=== PATIENT | male | born 1930 | race Caucasian/White ===

== ENCOUNTER 2019-04-23 22:37 | Inpatient (IN) | payer MEDICARE, OTHER ==
[2019-04-23] MEDS ORDERED: Ondansetron PF 4 MG/2 ML Vial IVP PRN (23:02)
[2019-04-23] MEDS ORDERED: Acetaminophen 325 MG TAB PO PRN (23:02)
[2019-04-23] MEDS ORDERED: Ondansetron ODT 4 MG TAB SL PRN (23:02)
[2019-04-23 23:10] VITALS: BMI 29.8
[2019-04-24 05:18] LABS: Troponin I 0.032 ng/mL (< 0.028)
[2019-04-24 08:48] LABS: #Eosinphils 0.2 thou/uL (0.0-0.7); #Lymphocytes 0.7 thou/uL (1.20-3.40); #Monocytes 0.7 thou/uL (0.11-0.59); %Basophils 0.3 % (0.0-1.0); %Eosinophils 3.1 % (0.0-10.0); %Lymphocytes 8.7 % (21.0-51.0); %Monocytes 9.1 % (0.0-10.0); %Neutrophils 78.8 % (42.0-75.0); Hemoglobin 11.8 g/dL (14.0-18.0); Mean Corpuscular HGB CONC 33.4 g/dL (32.0-36.0); Mean Corpuscular Hemoglobin 31.8 pg (27.0-31.0); Mean Corpuscular Volume 95.3 fL (78.0-98.0); Mean Platelet Volume 6.3 fL (7.4-10.4); Platelet Count 230 thou/uL (130-400); RBC Distribution Width 12.6 % (11.5-14.5); White Blood Cell (WBC) Count 7.7 thou/uL (4.8-10.8)
[2019-04-24 09:11] LABS: ALT (SGPT) 13 U/L (8-55); AST (SGOT) 13 U/L (5-34); Alkaline Phosphatase 48 U/L (40-110); Anion Gap 13 mmol/L (10-20); BUN (Urea Nitrogen) 15 mg/dL (8.4-25.7); Bilirubin, Total 0.8 mg/dL (0.2-1.2); Calc. Creatinine Clearance 70 mL/min (70-130); Calcium 8.7 mg/dL (7.8-10.44); Carbon Dioxide 31 mmol/L (23-31); Chloride 91 mmol/L (98-107); Estimated GFR-MDRD 82; Globulin 2.2 g/dL (2.4-3.5); Glucose 181 mg/dL (83-110); Potassium 4.5 mmol/L (3.5-5.1); Protein, Total 6.2 g/dL (5.8-8.1); Sodium 130 mmol/L (136-145)
[2019-04-24] MEDS ORDERED: Carvedilol 25 MG TAB PO SCH ×3 (09:25→21:00)
[2019-04-24] MEDS ORDERED: Furosemide 40 MG/4 ML VIAL SLOW IVP SCH (09:45)
--- NOTE | 2019-04-24 09:50 | PDOC.HHP ---
Hospitalist HPI - History of Present Illness SOB History of Present Illness: Mr. Barfield is an 88 y/o gentleman with PMH of CAD s/p CABG 2009, aortic stenosis , CHF, atrial fibrilattion with pacemaker, t2dm who presents to [facility] with increased swelling in legs for the past week. He states that since January he started noticing increasing swelling and weight gain. He went from 177lbs to now 186lbs. This past week noticed that he had increasing shortness of breath when walking. States that it got so bad that he went to ED in [place]. He apparently has history of recent LHC which demonstrates EF of 55%. He had echo in Mar 2019 which demonstrated EF of 45 to 55% as well as aortic valve stenosis. He was given lasix dose in [place] ED and transfered to our instituation for cardiac and pulmonary evaluation. BNP on admission 397. Hospitalist ROS - Review of Systems Constitutional: denies: fever, chills, sweats, weakness, malaise, other Eyes: denies: pain, vision change, conjunctivae inflammation, eyelid inflammation, redness, other ENT: denies: ear pain, ear discharge, nose pain, nose discharge, nose congestion , mouth pain, mouth swelling, throat pain, throat swelling, other Respiratory: reports: shortness of breath, SOB with excertion. denies: cough, dry, hemoptysis, pleuritic pain, sputum, wheezing, other Cardiovascular: reports: edema. denies: chest pain, palpitations, orthopnea, paroxysmal noc. dyspnea, light headedness, other Gastrointestinal: denies: nausea, vomiting, abdominal pain, diarrhea, constipation, melena, hematochezia, other Genitourinary: denies: dysuria, frequency, incontinence, hematuria, retention, other Musculoskeletal: denies: neck pain, shoulder pain, arm pain, back pain, hand pain, leg pain, foot pain, other Skin: denies: rash, lesions, willam, bruising, other Neurological: denies: weakness, numbness, incoordination, change in speech, confusion, seizures, other - Medication Medications: Medication Instructions Recorded Confirmed Type Aspirin [Aspirin EC] 162 mg PO QPM 09/22/13 04/23/19 History Diltiazem HCl [Cardizem CD] 240 mg PO DAILY 09/22/13 04/23/19 History Hydrochlorothiazide 12.5 mg PO QAM 09/22/13 04/23/19 History Levothyroxine Sodium [Synthroid] 50 mcg PO DAILY 09/22/13 04/23/19 History Simvastatin 10 mg PO HS 09/22/13 04/23/19 History clonazePAM 0.5 mg PO PRN PRN 09/22/13 04/23/19 History Carvedilol [Coreg] 25 mg PO BID 09/23/13 04/23/19 History Dulaglutide [Trulicity] 0.5 ml SC [id number] 04/23/19 04/23/19 History Olmesartan Medoxomil [Benicar] 1 tab PO DAILY 04/23/19 04/23/19 History glyBURIDE/metFORMIN HCl 2 tab PO QAM-WM 04/23/19 04/23/19 History [Glyburide-Metformin 5-500 mg] Hospitalist History - Past Medical History Cardiac: reports: AFIB, CAD, CHF, HTN Pulmonary: reports: congestive heart failure CLINICAL NURSE MANAGER: reports: no pertinent history Gastrointestinal: reports: no pertinent history Heme/Onc: reports: no pertinent history Hepatobiliary: reports: no pertinent history Psych: reports: no pertinent history Musculoskeletal: reports: no pertinent history Rheumatologic: reports: no pertinent history Infectious Disease: reports: no pertinent history ENT: reports: no pertinent history Renal/: reports: no pertinent history Endocrine: reports: Diabetes Dermatology: reports: no pertinent history - Past Surgical History Past Surgical History: reports: CABG - Family History Family History: reports: hypertension - Social History Smoking Status: Former smoker Alcohol: reports: Rare Drugs: reports: none Living Situation: With Family Activity level: independent ambulation - Exam General Appearance: NAD, awake alert Eye: PERRL, anicteric sclera ENT: normocephalic atraumatic, no oropharyngeal lesions, moist mucosa Neck: supple, symmetric, no JVD, no thyromegaly, no lymphadenopathy, no carotid bruit Heart: RRR, no gallops, no rubs, normal peripheral pulses, murmur present Respiratory: no wheezes, normal chest expansion, no tachypnea, normal percussion Respiratory - other findings: b/l crackles in lower lobes Gastrointestinal: soft, non-tender, non-distended, normal bowel sounds, no palpable masses, no hepatomegaly, no splenomegaly, no bruit Extremities: no cyanosis, no clubbing, 2+ LE edema Skin: normal turgor, no lesions, no rashes Neurological: cranial nerve grossly intact, normal sensation to touch, no weakness, no focal deficits, no new deficit Musculoskeletal: normal tone, normal strength, no muscle wasting Psychiatric: normal affect, normal behavior, A&O x 3 Hospitalist Results - Labs Result Diagrams: 04/24/19 08:33 04/24/19 08:33 Lab results: WBC 7.7 thou/uL (4.8-10.8) 04/24/19 08:33 Hgb 11.8 g/dL (14.0-18.0) L 04/24/19 08:33 Hct 35.2 % (42.0-52.0) L 04/24/19 08:33 MCV 95.3 fL (78.0-98.0) 04/24/19 08:33 Plt Count 230 thou/uL (130-400) 04/24/19 08:33 Neutrophils % 78.8 % (42.0-75.0) H 04/24/19 08:33 Sodium 130 mmol/L (136-145) L 04/24/19 08:33 Potassium 4.5 mmol/L (3.5-5.1) 04/24/19 08:33 Chloride 91 mmol/L (98-107) L 04/24/19 08:33 Carbon Dioxide 31 mmol/L (23-31) 04/24/19 08:33 BUN 15 mg/dL (8.4-25.7) 04/24/19 08:33 Creatinine 0.88 mg/dL (0.7-1.3) 04/24/19 08:33 Glucose 181 mg/dL (83-110) H 04/24/19 08:33 Calcium 8.7 mg/dL (7.8-10.44) 04/24/19 08:33 Total Bilirubin 0.8 mg/dL (0.2-1.2) 04/24/19 08:33 AST 13 U/L (5-34) 04/24/19 08:33 ALT 13 U/L (8-55) 04/24/19 08:33 Alkaline Phosphatase 48 U/L (40-110) 04/24/19 08:33 Troponin I 0.030 ng/mL (< 0.028) H 04/24/19 07:37 B-Natriuretic Peptide 868.4 pg/mL (0-100) H 04/24/19 08:33 Serum Total Protein 6.2 g/dL (5.8-8.1) 04/24/19 08:33 Albumin 4.0 g/dL (3.4-4.8) 04/24/19 08:33 Additional comment: Vital Signs (24 hours) Temp Pulse Pulse Pulse Resp BP BP 04/24/19 16:13 97.5 F L 62 18 04/24/19 14:14 61 73 129/59 L 120/75 04/24/19 12:15 97.2 F L 68 20 04/24/19 07:42 98.4 F 69 20 04/24/19 04:28 98.4 F 61 18 04/23/19 23:53 04/23/19 23:08 98.0 F 76 16 BP Pulse Ox 04/24/19 16:13 154/70 H 96 04/24/19 14:14 04/24/19 12:15 136/65 93 L 04/24/19 07:42 162/70 H 94 L 04/24/19 04:28 159/70 H 95 04/23/19 23:53 96 04/23/19 23:08 164/70 H 96 Hospitalist H&P A/P - Problem (1) Acute on chronic diastolic (congestive) heart failure Code(s): I50.33 - ACUTE ON CHRONIC DIASTOLIC (CONGESTIVE) HEART FAILURE Status : Acute (2) Moderate aortic valve stenosis Code(s): I35.0 - NONRHEUMATIC AORTIC (VALVE) STENOSIS Status: Acute (3) Paroxysmal atrial fibrillation Code(s): I48.0 - PAROXYSMAL ATRIAL FIBRILLATION Status: Acute (4) CAD (coronary artery disease) of artery bypass graft Code(s): I25.810 - ATHEROSCLEROSIS OF CABG W/O ANGINA PECTORIS Status: Acute (5) T2DM (type 2 diabetes mellitus) Status: Acute (6) HLD (hyperlipidemia) Code(s): E78.5 - HYPERLIPIDEMIA, UNSPECIFIED Status: Acute (7) HTN (hypertension) Code(s): I10 - ESSENTIAL (PRIMARY) HYPERTENSION Status: Acute (8) Pulmonary HTN Code(s): I27.20 - PULMONARY HYPERTENSION, UNSPECIFIED Status: Acute (9) Hyponatremia Code(s): E87.1 - HYPO-OSMOLALITY AND HYPONATREMIA Status: Acute - Plan Plan: Admit to telemetry for further diuresis. Appreciate cardiology and pulmonology recommendations Continue Lasix IV 40mg BID. Daily weight. Continue to monitor I&Os Fluid resctiction of 1800ml, hold HCTZ from home for now No need for repeat echo, as recent echo in Mar 2019 Continue medication from home including carvedilol, levothyroxine, ASA, and Zocor PT/OT eval and tx Code status: Full code ACP: is surrogate decision maker Disposition: Admit for eval and tx of diastolic HF. Workup of dyspnea with pulm and cards. Reccs appreciated. Likely greater than 2 midnights required in eval and tx.
[2019-04-24] MEDS ORDERED: Dextrose 5% in Water 1,000 ML IV PRN (09:51)
[2019-04-24] MEDS ORDERED: Dextrose 50% Abboject 50 ML SYRINGE SLOW IVP PRN (09:51)
[2019-04-24] MEDS ORDERED: Enoxaparin Sodium 40 MG/0.4 ML SYRINGE SC SCH (10:15)
--- NOTE | 2019-04-24 15:25 | CON ---
DATE OF CONSULTATION: PRIMARY CARE DOCTOR: Jose Garcia MD PRIMARY ELEVATOR CONSTRUCTOR HYDRAULIC: Spring Gutierrez MD PRIMARY BUTTERMAKER HELPER: Either Dr. Coffey or Dr. Swani. REASON FOR CARDIOLOGY CONSULT: New onset congestive heart failure. HISTORY OF PRESENT ILLNESS: Mr. Barfield is a very pleasant 88-year-old male with significant history of coronary artery disease with status post stent placement and CABG x1 in 2009, paroxysmal atrial fibrillation with history of ablation in 2012, hyperlipidemia, hypertension, possible COPD. The patient started having shortness of breath since last summer. The patient underwent cardiac catheterization in April 14, [address] Gutierrez, which showing EF 55%, KALPESH 1.3 cm and showing pulmonary hypertension. He started to have more shortness of breath with mild exacerbation with weakness, dizziness, lightheadedness since . He does not have a good appetite since . However, in the last few days he could not even walk more than 10 feet without worsening of dyspnea on exertion. He also reports that he has had abdominal bloating and bilateral lower extremities for couple of months. He had to sleep in the recliner due to the shortness of breath. He has a pulse oximetry. His normal oxygen level is around 98%; however, last few days, his O2 saturation has been 87% to 88%. He uses incentive spirometry. He used to record up to 1750 mL, however, now he can go up to 750. He denied chest pain, heaviness, tightness, left arm weakness, or any other cardiac complaints. He underwent left and right cardiac catheterization due to severe aortic valve stenosis. The patient KALPESH was 1.3 cm and showing the elevated pulmonary hypertension. The patient had a history of CABG x1 to the BUTTS to LAD in July 2009. The patient had a history of paroxysmal atrial fibrillation with stress test and PVAI in October 2012 and the patient had a stress test done in September 2018 with no ischemia. The patient's echocardiogram was done in March 2019 with EF 45% to 50%, moderate LAD, , moderate mitral valve and tricuspid regurgitation, severe aortic valve regurgitation with KALPESH which is showing 1.3 via cath in April 17 and moderate pulmonary hypertension and elevated RVSP. The patient had a stent placement in RCA. PAST MEDICAL HISTORY: Paroxysmal atrial fibrillation, coronary artery disease with stent placement and CABG, right bundle branch block and pacemaker placement, diabetes type 2, hyperlipidemia, hypertension, and possible COPD. The patient is supposed to follow up with Dr. Coffey today as a first consultation. The patient is supposed to be seen by Dr. Swain today as a consult. SURGICAL HISTORY: Bilateral cataract surgery, colonoscopy. Dual-chamber pacemaker in May 2012, PVAI ablation for atrial fibrillation in October 2012, CABG x1 in July 2009 and stent placement in RCA prior to the CABG. FAMILY HISTORY: The patient's mother had a pacemaker. Patient's father . The patient had a history of stent placement and valvular heart disease. The patient's brother due to alcohol and then tobacco induced cardiomyopathy. SOCIAL HISTORY: He is . He has four children who are living well. He is ex-smoker who quit in 1981. He drinks half finger of bourbon with Coke one glass a day. He used to exercise, walking in a mall; however, after [place] he has not done. He drinks 2 cups of coffee in the morning and he drinks at least six or eight glasses of water through the day. He does not watch sodium intake. ALLERGIES: NO KNOWN DRUG ALLERGIES. MEDICATION: 1. The patient has hypothyroid, levothyroxine 50 mcg once a day. 2. Metformin/glyburide 500/5 mg 2 tablets in the morning, one tablet at night. 3. Aspirin 81 mg once a day. 4. Clonazepam 0.5 mg half tablet every day. 5. Trulicity subcu. 6. Carvedilol 25 mg twice a day. 7. Hydrochlorothiazide 12.5 mg once a day. 8. Benicar 40 mg once a day. 9. Simvastatin 10 mg once a day. 10. Diltiazem 240 once a day. 11. DuoNeb. REVIEW OF SYSTEMS: 12-point review of systems negative unless otherwise mentioned in the HPI. PHYSICAL EXAMINATION: VITAL SIGNS: Blood pressure 162/70, temperature 98.4, pulse is 69, AV pacing, respiratory rate 20, and O2 saturation 94% with 2 L nasal cannula. GENERAL: The Patient is alert and oriented x4, not in acute distress. HEENT: Normocephalic, atraumatic. Eyes, extraocular muscle movement intact. ENT, mouth oral mucosa moist without lesion. NECK: Supple. Normal range of motion. No JVD. HEENT: Head, normocephalic and atraumatic. RESPIRATORY: Clear to auscultate, but very diminished at bilateral lower . No wheezing, rales, or rhonchi noted. CARDIOVASCULAR: Regular rate and rhythm. Normal S1, S2. There are no S3 or S4. No significant hives or thrill noted. The patient has a murmur in the right aortic valve area. EXTREMITIES: 2+ pulses in bilateral upper and lower extremities. The patient has 2 pitting edema in the left lower extremity, then 2 to 3 pitting edema in the right lower extremities. Carotid pulses are present without bruit or thrill. ABDOMEN: Soft, nontender. No mass to palpitate. Bowel sounds are present but diminished, hypoactive. MUSCULOSKELETAL: The patient able to move all extremities. The patient denied claudication. SKIN: Warm and dry. No lesion, rash, or erythema noted. NEUROLOGIC: The patient is alert, oriented x4, nonfocal. PSYCHIATRIC: The patient mood is appropriate. LABORATORY DATA: WBC 7.7, hemoglobin 11.8, hematocrit 35.2, platelets 230. Sodium 130, potassium 4.5, BUN of 15, creatinine 0.88, glucose 181, AST 13, ALT 13. Troponin is 0.032 and 0.030. Albumin is 4.0. The patient has a chest x-ray, which shows bilateral pleural effusion, the patient had congestive heart failure and a BNP at ER at [facility] showed 397 and blood gas is normal. ASSESSMENT AND PLAN: 1. Possible new onset acute on chronic diastolic heart failure. The patient's echocardiogram in March 2019 showed EF 45% to 50% and the patient underwent cardiac catheterization in April 17, 2019 with EF 55%. We would like to resume Lasix 40 mg twice a day for now and would like to resume the patient's beta tiffany and if the patient's vital signs stable, we would like to start STAS inhibitor or ARB for this patient, we would like to hold the hydrochlorothiazide since the patient's sodium level is low at this moment. 2. Moderate aortic valve stenosis. The patient's cardiac catheterization April 2019, shows moderate aortic valve stenosis with KALPESH 1.3 cm. We would like to continue to monitor. At this moment, patient is not a candidate for any further surgery or procedure for this site. 3. Paroxysmal atrial fibrillation. The patient's heart rate is stable at this moment with current medication. We would like to resume the carvedilol 12.5 mg twice a day instead of 25 mg twice a day since the patient is going to receive Lasix. 4. Coronary artery disease with a history of stent placement and coronary artery bypass graft. The patient's condition is stable at this moment. He is going to be on carvedilol and aspirin and simvastatin. 5. Diabetes type 2, which is managed by primary care doctor. 6. Hyperlipidemia. He is on simvastatin. 7. Hypertension, patient's blood pressure is stable at this moment. We would like to resume the patient's home medication. 8. Pulmonary hypertension, which is managed by Dr. Prasad or Dr. Simon, comparative sociology professor. Thank you very much for Cardiology Service to participate in the care of this patient. We will follow along the patient's care team and make further recommendations as appropriate. Job ID: [id number]
--- NOTE | 2019-04-24 16:00 | PRG ---
DATE OF SERVICE: 04/24/2019 I performed PFTs on this patient at the bedside today. His FEV1 is 0.80 L, which is 38% predicted. Forced vital capacity 1.33 L, which is 43% predicted. His FEV1/FVC ratio is 0.6. This is consistent with mixed obstructive/restrictive pulmonary impairment. Undoubtedly, this patient has some COPD, probably also has concurrent restriction from congestive heart failure. Job ID: [id number]
[2019-04-24] MEDS: Carvedilol 25 MG TAB PO SCH (16:16)
[2019-04-24] MEDS ORDERED: Carvedilol 6.25 MG TAB PO SCH (17:00)
--- NOTE | 2019-04-24 17:27 | CON ---
DATE OF CONSULTATION: 04/24/2019 CONSULTING PHYSICIAN: Dr. Gutierrez. REASON FOR CONSULTATION: Shortness of breath. HISTORY OF PRESENT ILLNESS: An 88-year-old male who has been plagued by episodic shortness of breath for at least the last year. Symptoms have been worse for the last 2 months. I do not have full information in the chart. From what I can gather, he is currently being worked up for aortic stenosis and had a cardiac catheterization done at the outpatient facility sometime last week. I do not know the results of that, but he was told his valve did not need to be replaced yet. He has also had atrial fibrillation in the past. He complains that he retains fluid. He says shortness of breath can occur either at rest or with exertion. He has no wheezing or congestion. He has taken some nebulizer treatments in the past. He says these helped for about 2 hours before the effect wears off. He smoked a pack and half a day between ages 21 and 51 and quit back in the early 1980s. 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 PAST MEDICAL HISTORY: Otherwise remarkable for type 2 diabetes, hypertension, hyperlipidemia, LV dysfunction with EF of 45% to 50% according to a note back in 2013. ALLERGIES: NONE. MEDICATIONS: Prior to admission: 1. Benicar. 2. Hydrochlorothiazide. 3. Coreg. 4. Glyburide/metformin. 5. Trulicity. 6. Cardizem CD. 7. Aspirin. 8. Clonazepam. 9. Simvastatin. 10. Levothyroxine. PHYSICAL EXAMINATION: VITAL SIGNS: Temperature 97.2, pulse 68, respirations 20, O2 saturation 93% on 2 L, and blood pressure 136/65. GENERAL: He is awake, alert, and in no distress. HEENT: Unremarkable. NECK: No adenopathy or JVD. LUNGS: Diminished breath sounds, but no wheezing or rhonchi. CARDIAC: S1, S2 regular. 2/6 systolic murmur. ABDOMEN: Soft. EXTREMITIES: No edema. IMAGING: Chest x-ray shows hyperinflation. LABORATORY DATA: White blood cell count 7.7, hematocrit 35.2, and platelet count 230. Sodium 130, potassium 4.5, chloride 91, CO2 of 31, BUN 15, creatinine 0.8, glucose 181. BNP is 868. ASSESSMENT: Dyspnea. Differential includes cardiac from congestive heart failure or aortic stenosis. This is somewhat supported by his elevated BNP. He also has significant smoking history in the past, so I will do some spirometry and see whether or not he has some degree of chronic obstructive pulmonary disease. Unfortunately, I cannot do the complete lung volumes or DLCO at this time due to personal limitations. PLAN: Plan for PFTs. Further disposition to follow. Job ID: [id number]
[2019-04-24] MEDS: Mometasone/Formoterol 120 PUFF INHALER INH SCH (18:32)
[2019-04-24] MEDS: Furosemide 40 MG/4 ML VIAL SLOW IVP SCH (20:24)
[2019-04-24] MEDS: clonazePAM 0.5 MG TAB PO PRN (20:24)
[2019-04-24] MEDS: Aspirin 81 mg Enteric Coated Tablet PO SCH (20:24)
[2019-04-24] MEDS: Simvastatin 5 MG TAB PO SCH (20:24)
[2019-04-24] MEDS ORDERED: Non-Formulary Item 1 EACH (Simvastatin [Simvastatin] 10 MG) PO SCH (21:00)
[2019-04-25 04:52] LABS: #Eosinphils 0.4 thou/uL (0.0-0.7); #Monocytes 0.8 thou/uL (0.11-0.59); #Neutrophils 5.3 thou/uL (1.40-6.50); %Basophils 0.3 % (0.0-1.0); %Eosinophils 4.7 % (0.0-10.0); %Lymphocytes 13.8 % (21.0-51.0); %Monocytes 11.1 % (0.0-10.0); %Neutrophils 70.2 % (42.0-75.0); Hemoglobin 11.4 g/dL (14.0-18.0); Mean Corpuscular HGB CONC 32.4 g/dL (32.0-36.0); Mean Corpuscular Hemoglobin 30.7 pg (27.0-31.0); Mean Corpuscular Volume 94.9 fL (78.0-98.0); Mean Platelet Volume 6.5 fL (7.4-10.4); Platelet Count 228 thou/uL (130-400); RBC Distribution Width 12.5 % (11.5-14.5); Red Blood Cell (RBC) Count 3.72 mill/uL (4.70-6.10); White Blood Cell (WBC) Count 7.5 thou/uL (4.8-10.8)
[2019-04-25 05:12] LABS: Anion Gap 10 mmol/L (10-20); BUN (Urea Nitrogen) 15 mg/dL (8.4-25.7); Calc. Creatinine Clearance 71 mL/min (70-130); Calcium 8.5 mg/dL (7.8-10.44); Carbon Dioxide 35 mmol/L (23-31); Chloride 88 mmol/L (98-107); Estimated GFR-MDRD 86; Glucose 72 mg/dL (83-110); Potassium 4.1 mmol/L (3.5-5.1); Sodium 129 mmol/L (136-145)
[2019-04-25] MEDS: Furosemide 40 MG/4 ML VIAL SLOW IVP SCH ×2 (07:39→14:53)
[2019-04-25] MEDS ORDERED: Levothyroxine Sodium 50 MCG TAB PO SCH (09:00)
[2019-04-25] MEDS: Enoxaparin Sodium 40 MG/0.4 ML SYRINGE SC SCH (09:13)
[2019-04-25] MEDS: Carvedilol 25 MG TAB PO SCH ×2 (09:15→17:33)
[2019-04-25] MEDS: Mometasone/Formoterol 120 PUFF INHALER INH SCH ×2 (09:17→19:17)
--- NOTE | 2019-04-25 11:39 | PDOC.CPN ---
- Subjective Date: 04/25/19 Time: 09:30 Interval history: Overall patient feeling much better. Still volume overloaded, but improved. - Review of Systems General: denies: fever/chills, weight/appetite/sleep changes, night sweats, fatigue Respiratory: reports: shortness of breath Cardiovascular: denies: chest pain, palpitation, edema, paroxysmal nocturnal dyspnea, orthopnea Gastrointestinal: denies: nausea, vomiting, diarrhea, constipation, abd pain, GI bleeding Musculoskeletal: denies: pain, tenderness, stiffness, swelling, arthritis/ arthralgias Neurological: denies: numbness, syncope, seizure, weakness - Objective Allergies/Adverse Reactions: Allergies Allergy/AdvReac Type Severity Reaction Status Date / Time No Known Allergies Allergy Unverified 09/22/13 11:50 Visit Medications: Current Medications Albuterol/Ipratropium (Duoneb) 3 ml NEB [id number] [facility] Last Admin: 04/25/19 09:05 Dose: 3 ml Aspirin (Ecotrin) 162 mg PO QPM [facility] Last Admin: 04/24/19 20:24 Dose: 162 mg Carvedilol (Coreg) 25 mg PO BID-WM [facility] Last Admin: 04/25/19 09:15 Dose: 25 mg Clonazepam (Klonopin) 0.5 mg PO PRN PRN PRN Reason: Anxiety/Insomnia Last Admin: 04/24/19 20:24 Dose: 0.5 mg Dextrose/Water (Dextrose 50%) 25 gm SLOW IVP PRN PRN PRN Reason: Hypoglycemia Diltiazem HCl (Cardizem Cd) 240 mg PO DAILY [facility] Last Admin: 04/25/19 09:14 Dose: 240 mg Enoxaparin Sodium (Lovenox) 40 mg SC 0900 [facility] Last Admin: 04/25/19 09:13 Dose: 40 mg Furosemide (Lasix) 40 mg SLOW IVP 0600,1400 [facility] Glucagon (Glucagon) 1 mg IM PRN PRN PRN Reason: Hypoglycemia Dextrose/Water (D5w) 1,000 mls @ 0 mls/hr IV .Q0M PRN PRN Reason: Hypoglycemia Insulin Human Lispro (Humalog) 0 units SC .MILD SLIDING SCALE PRN PRN Reason: Mild Correctional Scale Levothyroxine Sodium (Synthroid) 50 mcg PO 0600 [facility] Mometasone Furoate/Formoterol Fumar (Dulera 200 Mcg/5 Mcg Inhaler) 2 puff INH BID-RT [facility] Last Admin: 04/25/19 09:17 Dose: 2 puff Simvastatin (Zocor) 10 mg PO HS [facility] Last Admin: 04/24/19 20:24 Dose: 10 mg Sodium Chloride (Flush - Normal Saline) 10 ml IVF Q12HR [place] Last Admin: 04/25/19 07:40 Dose: 10 ml Sodium Chloride (Flush - Normal Saline) 10 ml IVF PRN PRN PRN Reason: Saline Flush Last Admin: 04/24/19 10:18 Dose: 10 ml Vital Signs & Weight: Vital Signs Temp Pulse Resp BP BP Pulse Ox 04/25/19 09:17 64 16 04/25/19 09:14 64 154/11 H 04/25/19 09:07 93 L 04/25/19 09:05 64 16 04/25/19 07:56 92 L 04/25/19 07:54 98.8 F 59 L 18 154/111 H 92 L 04/25/19 03:56 97.7 F 63 16 153/89 H 96 Weight 179 lb 3 oz - Physical Exam General: alert & oriented x3, appears well HEENT: mucus membranes moist Neck: supple neck Cardiac: regular rate and rhythm Lungs: decreased breath sounds Neuro: grossly intact Abdomen: non-tender, distended Extremities: 2+ LE edema Skin: clear Musculoskeletal: no pain - Labs Result Diagrams: 04/25/19 04:39 04/25/19 04:39 Troponin/CKMB Troponin I 0.030 ng/mL (< 0.028) H 04/24/19 07:37 - Telemetry Sinus rhythms and dysrhythmias: other (AV paced) - Assessment/Plan Assessment/Plan: 1. Severe 2. COPD 3. Acute on chronic diastolic CHF 4. s/p pacer Continue diuresis. Patient is improving. Continue walking. No changes. Plan for possible TAVR in the future per Dr. Gutierrez.
[2019-04-25] MEDS: HumaLOG 300 UNITS/3 ML VIAL SC PRN (12:05)
--- NOTE | 2019-04-25 16:57 | PRG ---
DATE OF SERVICE: 04/25/2019 SUBJECTIVE: The patient is in better spirits today. He says diuretics, he felt his breathing significantly. He was almost a liter negative yesterday. OBJECTIVE: VITAL SIGNS: His temperature is 98.0, pulse is 60, respirations are 12, saturations 95% on room air, and blood pressure is 142/64. HEENT: Unremarkable. NECK: No adenopathy or JVD. CHEST: Clear anteriorly. CARDIAC: S1 and S2. Regular. ABDOMEN: Soft. EXTREMITIES: No edema. ASSESSMENT: 1. Chronic obstructive pulmonary disease. 2. Severe aortic stenosis. 3. Acute on chronic diastolic heart failure. PLAN: Continue nebs for his COPD. I think most of his improvement is due to diuresis and I would anticipate this making his pulmonary function much better. Job ID: [id number]
--- NOTE | 2019-04-25 18:12 | PDOC.HOSPP ---
- Subjective Encounter Date: 04/25/19 Encounter Time: :20 Subjective: Pt seen for followup re:CHF exacerbation. Feels better today. - Objective Vital Signs & Weight: Vital Signs (12 hours) Temp Pulse Resp BP BP BP Pulse Ox 04/25/19 16:00 98 F 60 12 142/64 H 95 04/25/19 14:05 63 16 04/25/19 12:00 98.2 F 67 16 130/60 91 L 04/25/19 09:17 64 16 04/25/19 09:14 64 154/11 H 04/25/19 09:07 93 L 04/25/19 09:05 64 16 04/25/19 07:56 92 L 04/25/19 07:54 98.8 F 59 L 18 154/111 H 92 L Weight Weight 179 lb 3 oz I&O: 04/24/19 04/25/19 04/26/19 06:59 06:59 06:59 Intake Total 300 1490 1440 Output Total 1400 2350 1900 Balance -1100 -860 -460 Result Diagrams: 04/25/19 04:39 04/25/19 04:39 Additional Labs: Accuchecks 04/25/19 04/25/19 04/25/19 16:51 11:02 04:25 POC Glucose 122 H 176 H 71 04/24/19 20:16 POC Glucose 219 H Labs and MARs reviewed by me EKG Reviewed by me: Yes (Tele: AV-paced) Hospitalist ROS - Review of Systems Constitutional: denies: fever, chills, sweats, weakness, malaise Respiratory: reports: SOB with excertion. denies: cough, dry, shortness of breath, hemoptysis, pleuritic pain, sputum, wheezing Cardiovascular: denies: chest pain, palpitations, orthopnea, paroxysmal noc. dyspnea, edema, light headedness Gastrointestinal: denies: nausea, vomiting, abdominal pain, diarrhea, constipation, melena, hematochezia Genitourinary: denies: dysuria, frequency, incontinence, hematuria, retention Musculoskeletal: denies: neck pain, shoulder pain, arm pain, back pain, hand pain, leg pain, foot pain - Medication Medications: Active Medications Generic Name Dose Route Start Last Admin Trade Name Freq PRN Reason Stop Dose Admin Albuterol/Ipratropium 3 ml 04/24/19:00 04/25/19 14:05 Duoneb NEB 3 ml [id number] [facility] Administration Aspirin 162 mg 04/24/19 21:00 04/24/19 20:24 Ecotrin PO 162 mg QPM [facility] Administration Carvedilol 25 mg 04/24/19 17:00 04/25/19 17:33 Coreg PO 25 mg BID-WM [facility] Administration Clonazepam 0.5 mg 04/24/19 09:19 04/24/19 20:24 Klonopin PO 0.5 mg PRN PRN Administration Anxiety/Insomnia Diltiazem HCl 240 mg 04/25/19 09:00 04/25/19 09:14 Cardizem Cd PO 240 mg DAILY [facility] Administration Enoxaparin Sodium 40 mg 04/25/19 09:00 04/25/19 09:13 Lovenox SC 40 mg 0900 [facility] Administration Furosemide 40 mg 04/25/19 14:00 04/25/19 14:53 Lasix SLOW IVP 40 mg 0600,1400 [facility] Administration Insulin Human Lispro 0 units 04/24/19 09:51 04/25/19 12:05 Humalog SC 2 unit .MILD SLIDING SCALE PRN Administration Mild Correctional Scale Mometasone Furoate/Formoterol Fumar 2 puff 04/24/19 18:30 04/25/19 09:17 Dulera 200 Mcg/5 Mcg Inhaler INH 2 puff BID-RT [facility] Administration Simvastatin 10 mg 04/24/19 21:00 04/24/19 20:24 Zocor PO 10 mg HS [facility] Administration Sodium Chloride 10 ml 04/24/19 21:00 04/25/19 07:40 Flush - Normal Saline IVF 10 ml Q12HR [facility] Administration Sodium Chloride 10 ml 04/24/19 09:33 04/24/19 10:18 Flush - Normal Saline IVF 10 ml PRN PRN Administration Saline Flush - Exam General Appearance: awake alert Eye: anicteric sclera ENT: moist mucosa Neck: supple, symmetric, no thyromegaly, JVD Heart: RRR, no gallops, no rubs, normal peripheral pulses Respiratory - other findings: Bibasal crackles Gastrointestinal: soft, non-tender, non-distended, normal bowel sounds Extremities: 1+ LE edema Psychiatric: normal affect, normal behavior, A&O x 3 Hosp A/P - Plan - Assessment: (1) Acute on chronic diastolic (congestive) heart failure NYHA Class 3 Code(s): I50.33 - ACUTE ON CHRONIC DIASTOLIC (CONGESTIVE) HEART FAILURE Status : Acute (2) Hyponatremia Code(s): E87.1 - HYPO-OSMOLALITY AND HYPONATREMIA Status: Acute (3) Paroxysmal atrial fibrillation Code(s): I48.0 - PAROXYSMAL ATRIAL FIBRILLATION Status: Chronic (4) CAD (coronary artery disease) of artery bypass graft Code(s): I25.810 - ATHEROSCLEROSIS OF CABG W/O ANGINA PECTORIS Status: Chronic (5) T2DM (type 2 diabetes mellitus) Status: Acute (6) HLD (hyperlipidemia) Code(s): E78.5 - HYPERLIPIDEMIA, UNSPECIFIED Status: Chronic (7) HTN (hypertension) Code(s): I10 - ESSENTIAL (PRIMARY) HYPERTENSION Status: Chronic (8) Pulmonary HTN Code(s): I27.20 - PULMONARY HYPERTENSION, UNSPECIFIED Status: Chronic (9) Moderate aortic valve stenosis Code(s): I35.0 - NONRHEUMATIC AORTIC (VALVE) STENOSIS Status: Chronic - Plan Plan: Diuresing well, Continue Lasix IV 40mg BID. Daily weight. Continue to monitor I&Os HCTZ on hold due to hyponatremia No need for repeat echo, as recent echo in Mar 2019 Continue carvedilol, levothyroxine, ASA, and Zocor Ambulate pt
[2019-04-25] MEDS: Aspirin 81 mg Enteric Coated Tablet PO SCH (20:43)
[2019-04-25] MEDS: Simvastatin 5 MG TAB PO SCH (20:43)
[2019-04-25] MEDS: clonazePAM 0.5 MG TAB PO PRN (20:45)
[2019-04-26] MEDS: Levothyroxine Sodium 50 MCG TAB PO SCH (05:59)
[2019-04-26] MEDS: Furosemide 40 MG/4 ML VIAL SLOW IVP SCH ×2 (05:59→14:35)
[2019-04-26] MEDS: Mometasone/Formoterol 120 PUFF INHALER INH SCH ×2 (08:54→19:09)
[2019-04-26 09:25] LABS: Anion Gap 13 mmol/L (10-20); BUN (Urea Nitrogen) 16 mg/dL (8.4-25.7); Calc. Creatinine Clearance 57 mL/min (70-130); Calcium 8.6 mg/dL (7.8-10.44); Carbon Dioxide 35 mmol/L (23-31); Chloride 87 mmol/L (98-107); Estimated GFR-MDRD 68; Glucose 202 mg/dL (83-110); Potassium 3.7 mmol/L (3.5-5.1); Sodium 131 mmol/L (136-145)
--- NOTE | 2019-04-26 09:35 | PDOC.CPN ---
- Subjective Date: 04/26/19 Time: 09:00 Interval history: Overall patient much improved. Walking cortes without difficulty. - Review of Systems General: denies: fever/chills, weight/appetite/sleep changes, night sweats, fatigue Respiratory: reports: shortness of breath Cardiovascular: denies: chest pain, palpitation, edema, paroxysmal nocturnal dyspnea, orthopnea Gastrointestinal: denies: nausea, vomiting, diarrhea, constipation, abd pain, GI bleeding Musculoskeletal: denies: pain, tenderness, stiffness, swelling, arthritis/ arthralgias Neurological: denies: numbness, syncope, seizure, weakness - Objective Allergies/Adverse Reactions: Allergies Allergy/AdvReac Type Severity Reaction Status Date / Time No Known Allergies Allergy Unverified 09/22/13 11:50 Visit Medications: Current Medications Albuterol/Ipratropium (Duoneb) 3 ml NEB [id number] [facility] Last Admin: 04/26/19 08:38 Dose: 3 ml Aspirin (Ecotrin) 162 mg PO QPM [facility] Last Admin: 04/25/19 20:43 Dose: 162 mg Carvedilol (Coreg) 25 mg PO BID-[facility] Last Admin: 04/25/19 17:33 Dose: 25 mg Clonazepam (Klonopin) 0.5 mg PO PRN PRN PRN Reason: Anxiety/Insomnia Last Admin: 04/25/19 20:45 Dose: 0.5 mg Dextrose/Water (Dextrose 50%) 25 gm SLOW IVP PRN PRN PRN Reason: Hypoglycemia Diltiazem HCl (Cardizem Cd) 240 mg PO DAILY [facility] Last Admin: 04/25/19 09:14 Dose: 240 mg Enoxaparin Sodium (Lovenox) 40 mg SC 0900 [facility] Last Admin: 04/25/19 09:13 Dose: 40 mg Furosemide (Lasix) 40 mg SLOW IVP 0600,1400 [facility] Stop: 04/26/19 23:59 Last Admin: 04/26/19 05:59 Dose: 40 mg Furosemide (Lasix) 40 mg PO DAILY-[facility] Glucagon (Glucagon) 1 mg IM PRN PRN PRN Reason: Hypoglycemia Dextrose/Water (D5w) 1,000 mls @ 0 mls/hr IV .Q0M PRN PRN Reason: Hypoglycemia Insulin Human Lispro (Humalog) 0 units SC .MILD SLIDING SCALE PRN PRN Reason: Mild Correctional Scale Last Admin: 04/25/19 12:05 Dose: 2 unit Levothyroxine Sodium (Synthroid) 50 mcg PO 0600 [facility] Last Admin: 04/26/19 05:59 Dose: 50 mcg Mometasone Furoate/Formoterol Fumar (Dulera 200 Mcg/5 Mcg Inhaler) 2 puff INH BID-RT [facility] Last Admin: 04/26/19 08:54 Dose: 2 puff Simvastatin (Zocor) 10 mg PO HS [facility] Last Admin: 04/25/19 20:43 Dose: 10 mg Sodium Chloride (Flush - Normal Saline) 10 ml IVF Q12HR [facility] Last Admin: 04/25/19 20:46 Dose: 10 ml Sodium Chloride (Flush - Normal Saline) 10 ml IVF PRN PRN PRN Reason: Saline Flush Last Admin: 04/24/19 10:18 Dose: 10 ml Vital Signs & Weight: Vital Signs Temp Pulse Resp BP Pulse Ox 04/26/19 08:54 70 16 04/26/19 08:40 97 04/26/19 08:38 70 16 04/26/19 04:50 97.7 F 82 12 140/63 95 Weight 175 lb 6 oz - Physical Exam General: alert & oriented x3, appears well Neck: supple neck Cardiac: regular rate and rhythm Lungs: clear to auscultation, decreased breath sounds Neuro: grossly intact Abdomen: soft, other (mild distention) Extremities: other: (mild edema) Skin: clear Musculoskeletal: no pain - Labs Result Diagrams: 04/25/19 04:39 04/26/19 08:57 Troponin/CKMB Troponin I 0.030 ng/mL (< 0.028) H 04/24/19 07:37 - Assessment/Plan Assessment/Plan: 1. Severe 2. COPD 3. Acute on chronic diastolic CHF 4. s/p pacer 5. Hyponatremia Will change lasix to po starting tomorrow. Check BMP for sodium level. Patient much better. Continue walking. No changes. Plan for possible TAVR in the future per Dr. Gutierrez. ? Discharge soon.
[2019-04-26] MEDS: Carvedilol 25 MG TAB PO SCH ×2 (09:38→17:10)
[2019-04-26] MEDS: Enoxaparin Sodium 40 MG/0.4 ML SYRINGE SC SCH (09:38)
--- NOTE | 2019-04-26 15:37 | PDOC.HOSPP ---
- Subjective Encounter Date: 04/26/19 Encounter Time: 08:20 Subjective: Pt seen for followup re: CHF exacerbation. Feels better. - Objective Vital Signs & Weight: Vital Signs (12 hours) Temp Pulse Resp BP BP BP Pulse Ox 04/26/19 13:32 61 16 04/26/19 11:42 97.2 F L 80 24 H 108/59 L 95 04/26/19 11:41 97.2 F L 80 24 H 04/26/19 09:37 82 118/66 04/26/19 08:54 70 16 04/26/19 08:40 97 04/26/19 08:38 70 16 04/26/19 08:00 97.7 F 82 18 118/66 97 04/26/19 04:50 97.7 F 82 12 140/63 95 Weight Weight 175 lb 6 oz I&O: 04/25/19 04/26/19 04/27/19 06:59 06:59 06:59 Intake Total 1490 1670 230 Output Total 2350 2675 425 Balance -860 -1005 -195 Result Diagrams: 04/25/19 04:39 04/26/19 08:57 Additional Labs: Accuchecks 04/26/19 04/26/19 04/25/19 11:03 05:45 20:30 POC Glucose 173 H 76 263 H 04/25/19 16:51 POC Glucose 122 H Labs and MARs reviewed by me EKG Reviewed by me: Yes (Tele: AV-paced) Hospitalist ROS - Review of Systems Respiratory: reports: SOB with excertion. denies: cough, shortness of breath, pleuritic pain, wheezing Cardiovascular: denies: chest pain, palpitations, orthopnea, paroxysmal noc. dyspnea, edema, light headedness - Medication Medications: Active Medications Generic Name Dose Route Start Last Admin Trade Name Freq PRN Reason Stop Dose Admin Albuterol/Ipratropium 3 ml 04/24/19 19:00 04/26/19 13:32 Duoneb NEB 3 ml [id number] [facility] Administration Aspirin 162 mg 04/24/19 21:00 04/25/19 20:43 Ecotrin PO 162 mg QPM [place] Administration Carvedilol 25 mg 04/24/19 17:00 04/26/19 09:38 Coreg PO 25 mg BID-WM [place] Administration Clonazepam 0.5 mg 04/24/19 09:19 04/25/19 20:45 Klonopin PO 0.5 mg PRN PRN Administration Anxiety/Insomnia Diltiazem HCl 240 mg 04/25/19 09:00 04/26/19 09:37 Cardizem Cd PO 240 mg DAILY [facility] Administration Enoxaparin Sodium 40 mg 04/25/19 09:00 04/26/19 09:38 Lovenox SC 40 mg 0900 [place] Administration Furosemide 40 mg 04/25/19 14:00 04/26/19 14:35 Lasix SLOW IVP 04/26/19 23:59 40 mg 0600,1400 [place] Administration Insulin Human Lispro 0 units 04/24/19 09:51 04/25/19 12:05 Humalog SC 2 unit .MILD SLIDING SCALE PRN Administration Mild Correctional Scale Levothyroxine Sodium 50 mcg 04/26/19 06:00 04/26/19 05:59 Synthroid PO 50 mcg 0600 [place] Administration Mometasone Furoate/Formoterol Fumar 2 puff 04/24/19 18:30 04/26/19 08:54 Dulera 200 Mcg/5 Mcg Inhaler INH 2 puff BID-RT [place] Administration Simvastatin 10 mg 04/24/19 21:00 04/25/19 20:43 Zocor PO 10 mg HS [place] Administration Sodium Chloride 10 ml 04/24/19 21:00 04/26/19 09:38 Flush - Normal Saline IVF 10 ml Q12HR [facility] Administration Sodium Chloride 10 ml 04/24/19 09:33 04/26/19 14:36 Flush - Normal Saline IVF 10 ml PRN PRN Administration Saline Flush - Exam General Appearance: NAD Eye: anicteric sclera ENT: moist mucosa Neck: supple Heart: RRR Respiratory: CTAB Gastrointestinal: soft, non-tender Extremities: 1+ LE edema Psychiatric: normal affect, normal behavior Hosp A/P - Plan - Assessment: (1) Acute on chronic diastolic (congestive) heart failure NYHA Class 3 Code(s): I50.33 - ACUTE ON CHRONIC DIASTOLIC (CONGESTIVE) HEART FAILURE Status : Acute (2) Hyponatremia Code(s): E87.1 - HYPO-OSMOLALITY AND HYPONATREMIA Status: Acute (3) Paroxysmal atrial fibrillation Code(s): I48.0 - PAROXYSMAL ATRIAL FIBRILLATION Status: Chronic (4) CAD (coronary artery disease) of artery bypass graft Code(s): I25.810 - ATHEROSCLEROSIS OF CABG W/O ANGINA PECTORIS Status: Chronic (5) T2DM (type 2 diabetes mellitus) Status: Acute (6) HLD (hyperlipidemia) Code(s): E78.5 - HYPERLIPIDEMIA, UNSPECIFIED Status: Chronic (7) HTN (hypertension) Code(s): I10 - ESSENTIAL (PRIMARY) HYPERTENSION Status: Chronic (8) Pulmonary HTN Code(s): I27.20 - PULMONARY HYPERTENSION, UNSPECIFIED Status: Chronic (9) Moderate aortic valve stenosis Code(s): I35.0 - NONRHEUMATIC AORTIC (VALVE) STENOSIS Status: Chronic - Plan Plan: Clinically improving. Continue Lasix IV 40mg BID. Continue to monitor I&Os HCTZ on hold, sodium improved to 131. Continue carvedilol, levothyroxine, ASA, and Zocor Ambulate pt Family updated at bedside.
[2019-04-26] MEDS: clonazePAM 0.5 MG TAB PO PRN (20:47)
[2019-04-26] MEDS: Aspirin 81 mg Enteric Coated Tablet PO SCH (20:47)
[2019-04-26] MEDS: Simvastatin 5 MG TAB PO SCH (20:47)
[2019-04-27 04:40] LABS: #Eosinphils 0.3 thou/uL (0.0-0.7); #Lymphocytes 1.1 thou/uL (1.20-3.40); #Monocytes 0.7 thou/uL (0.11-0.59); #Neutrophils 3.6 thou/uL (1.40-6.50); %Basophils 0.8 % (0.0-1.0); %Eosinophils 4.9 % (0.0-10.0); %Lymphocytes 19.6 % (21.0-51.0); %Monocytes 12.4 % (0.0-10.0); %Neutrophils 62.4 % (42.0-75.0); Hemoglobin 10.7 g/dL (14.0-18.0); Mean Corpuscular HGB CONC 31.8 g/dL (32.0-36.0); Mean Corpuscular Hemoglobin 30.3 pg (27.0-31.0); Mean Platelet Volume 6.4 fL (7.4-10.4); Platelet Count 216 thou/uL (130-400); RBC Distribution Width 12.6 % (11.5-14.5); Red Blood Cell (RBC) Count 3.52 mill/uL (4.70-6.10); White Blood Cell (WBC) Count 5.7 thou/uL (4.8-10.8)
[2019-04-27 05:07] LABS: Anion Gap 11 mmol/L (10-20); BUN (Urea Nitrogen) 22 mg/dL (8.4-25.7); Calc. Creatinine Clearance 48 mL/min (70-130); Calcium 8.4 mg/dL (7.8-10.44); Carbon Dioxide 36 mmol/L (23-31); Chloride 89 mmol/L (98-107); Estimated GFR-MDRD 58; Glucose 73 mg/dL (83-110); Potassium 3.5 mmol/L (3.5-5.1); Sodium 132 mmol/L (136-145)
[2019-04-27] MEDS: Levothyroxine Sodium 50 MCG TAB PO SCH (05:23)
[2019-04-27] MEDS: Mometasone/Formoterol 120 PUFF INHALER INH SCH (07:11)
[2019-04-27] MEDS ORDERED: Furosemide 40 MG TAB PO SCH (07:30)
[2019-04-27] MEDS: Carvedilol 25 MG TAB PO SCH ×2 (08:35→16:21)
[2019-04-27] MEDS: Enoxaparin Sodium 40 MG/0.4 ML SYRINGE SC SCH (08:37)
[2019-04-27] MEDS ORDERED: TRULICITY SC SCH (09:00)
--- NOTE | 2019-04-27 10:20 | PRG ---
DATE OF SERVICE: 04/27/2019 SUBJECTIVE: He continues to improve. He says he feels better than he has felt in several months. OBJECTIVE: VITAL SIGNS: His temperature is 98.5, pulse 67, blood pressure 151/67, and O2 saturation 95%. HEENT: Unremarkable. NECK: No adenopathy or JVD. CHEST: Clear. CARDIAC: S1 and S2. Regular. ABDOMEN: Soft. EXTREMITIES: No edema. ASSESSMENT: 1. Chronic heart failure due to valvular heart disease. 2. Improved respiratory status after diuresis. 3. Underlying chronic obstructive pulmonary disease. I doubt that the lung status improvement is due to anything but the diuretics. Job ID: [id number]
--- NOTE | 2019-04-27 11:19 | PDOC.CPN ---
- Subjective Date: 04/27/19 Time: 11:20 Interval history: The pt seen and examined. No overnight events. No cardiac complaints. - Objective Allergies/Adverse Reactions: Allergies Allergy/AdvReac Type Severity Reaction Status Date / Time No Known Allergies Allergy Unverified 09/22/13 11:50 Visit Medications: Current Medications Albuterol/Ipratropium (Duoneb) 3 ml NEB [id number] [facility] Last Admin: 04/27/19 07:11 Dose: 3 ml Aspirin (Ecotrin) 162 mg PO QPM [facility] Last Admin: 04/26/19 20:47 Dose: 162 mg Carvedilol (Coreg) 25 mg PO BID-WM [facility] Last Admin: 04/27/19 08:35 Dose: 25 mg Clonazepam (Klonopin) 0.5 mg PO PRN PRN PRN Reason: Anxiety/Insomnia Last Admin: 04/26/19 20:47 Dose: 0.5 mg Dextrose/Water (Dextrose 50%) 25 gm SLOW IVP PRN PRN PRN Reason: Hypoglycemia Diltiazem HCl (Cardizem Cd) 240 mg PO DAILY [facility] Last Admin: 04/27/19 08:35 Dose: 240 mg Enoxaparin Sodium (Lovenox) 40 mg SC 0900 [facility] Last Admin: 04/27/19 08:37 Dose: 40 mg Furosemide (Lasix) 40 mg PO DAILY-AC [facility] Last Admin: 04/27/19 08:35 Dose: 40 mg Glucagon (Glucagon) 1 mg IM PRN PRN PRN Reason: Hypoglycemia Dextrose/Water (D5w) 1,000 mls @ 0 mls/hr IV .Q0M PRN PRN Reason: Hypoglycemia Insulin Human Lispro (Humalog) 0 units SC .MILD SLIDING SCALE PRN PRN Reason: Mild Correctional Scale Last Admin: 04/25/19 12:05 Dose: 2 unit Levothyroxine Sodium (Synthroid) 50 mcg PO 0600 [facility] Last Admin: 04/27/19 05:23 Dose: 50 mcg Mometasone Furoate/Formoterol Fumar (Dulera 200 Mcg/5 Mcg Inhaler) 2 puff INH BID-RT [facility] Last Admin: 04/27/19 07:11 Dose: 2 puff Trulicity ( (Dulaglutide)) 0 each SC Q7DAYS [facility] Simvastatin (Zocor) 10 mg PO HS [facility] Last Admin: 04/26/19 20:47 Dose: 10 mg Sodium Chloride (Flush - Normal Saline) 10 ml IVF Q12HR [facility] Last Admin: 04/27/19 08:37 Dose: 10 ml Sodium Chloride (Flush - Normal Saline) 10 ml IVF PRN PRN PRN Reason: Saline Flush Last Admin: 04/26/19 14:36 Dose: 10 ml Vital Signs & Weight: Vital Signs Temp Pulse Resp BP BP BP Pulse Ox 04/27/19 11:12 98.4 F 73 16 118/57 L 93 L 04/27/19 08:35 67 151/67 H 04/27/19 07:52 98.5 F 66 16 143/65 H 95 04/27/19 07:11 80 12 04/27/19 04:13 97.6 F 80 20 135/60 93 L Weight 170 lb 7 oz - Physical Exam General: alert & oriented x3 HEENT: mucus membranes moist Neck: supple neck Cardiac: regular rate and rhythm, S1/S2 Lungs: clear to auscultation Neuro: cranial nerve 2-12 intact Extremities: no edema Skin: clear Musculoskeletal: normal range of motion - Labs Result Diagrams: 04/27/19 03:59 04/27/19 03:59 Troponin/CKMB Troponin I 0.030 ng/mL (< 0.028) H 04/24/19 07:37 - Telemetry Sinus rhythms and dysrhythmias: other (V paced) - Assessment/Plan Assessment/Plan: 1. Acute on chronic diastolic CHF - stable with RA; on Lasix and Coreg; will start STAS/ARB with more stable VS 2. Mod-Severe with KALPESH 1.3 cm2 2. COPD 3. CAD with hx of stent and CABG x 1 - stable; on BBlocker, ASA, and Statin 4. s/p pacer 5. Hyponatremia 6. Prox Afib - well controlled HR MAR reviewed Pt. seen and eval. by me. I agree with the A/P by the FIELD MARKETING SPECIALIST.He is feeling much better after diuresis. Chest clear. RRR. From a cardiac standpoint he is stable for d/c. I have sent his info. to [place] for evaluation of a TAVR. Continue po diuretics. f/u with me in 2-3 weeks. Decrease polasix to once a day.
[2019-04-27] MEDS: HumaLOG 300 UNITS/3 ML VIAL SC PRN (11:48)
[2019-04-27] MEDS ORDERED: Acetaminophen/Codeine 30-300mg Tablet PO PRN ×2 (16:35)
[2019-04-27] MEDS ORDERED: diphenhydrAMINE 50 MG/ML VIAL IVP PRN (16:35)
[2019-04-27] MEDS ORDERED: Lidocaine 5% Patch TD SCH ×2 (16:45→17:00)
[2019-04-27 17:58] VITALS: BP 106/57; TEMP 98.2
[2019-04-27] MEDS ORDERED: Gabapentin 100 MG CAP PO SCH (21:00)
--- NOTE | 2019-04-28 01:35 | DIS ---
DATE OF ADMISSION: 04/23/2019 DATE OF DISCHARGE: 04/27/2019 PRIMARY CARE PROVIDER: Jose Garcia MD DISCHARGE DIAGNOSES: 1. Acute on chronic diastolic congestive heart failure, NYHA class III, moderate to severe aortic stenosis. 2. Chronic obstructive pulmonary disease. 3. Hyponatremia. CONDITION OF PATIENT ON THE DAY OF DISCHARGE: Stable. I assessed Mr. Barfield on the day of discharge. He denies any chest pain or shortness of breath. Vital signs are stable. S1 and S2 are heard, regular. Lungs are clear to auscultation bilaterally. CONSULTATIONS DURING THIS HOSPITALIZATION: 1. Cardiology, Dr. Spring Gutierrez MD. 2. Pulmonary and Critical Care Medicine, Dr. Swain. DISCHARGE MEDICATIONS: 1. Trulicity 0.5 mL subcutaneously every week. 2. Aspirin 162 mg daily. 3. Coreg 25 mg 2 times a day. 4. Cardizem CD 240 mg daily. 5. Glyburide/metformin two tablets in the morning and one tablet in the evening, 5/500 mg tablet strength. 6. Synthroid 50 mcg daily. 7. Benicar 40 mg daily. 8. Simvastatin 10 mg at bedtime. 9. Clonazepam 0.5 mg as needed. New medications starting during this hospitalization are: 1. Lasix 40 mg daily. 2. Dulera 200/5 mcg two puffs 2 times a day. 3. Potassium chloride 10 mEq daily. 4. DuoNeb 3 mL four times a day as needed. Hydrochlorothiazide was discontinued during this hospitalization. HOSPITAL COURSE: Mr. Barfield is a pleasant 88-year-old gentleman, who was admitted to [facility] on April 24, 2019, for acute on chronic diastolic congestive heart failure. He was seen by Cardiology Service. He was also seen by Pulmonary and Critical Care Medicine Service. He improved with intravenous diuretics. He had bedside pulmonary function tests, which were consistent with mixed obstructive/restrictive pulmonary impairment. He was hyponatremic, therefore, hydrochlorothiazide was discontinued. He continued to improve clinically and is being discharged home in a stable condition. He was continued on aspirin since he was in sinus rhythm during this hospitalization, per cardiology service. On the day of discharge, Mr. Barfield has sodium of 132, potassium 3.5, creatinine 1.19, white count 5700, hemoglobin 10.7, and platelet count 216,000. Many thanks for allowing me to participate in your patient's care. Please feel free to contact me with any questions or concerns. DISCHARGE DESTINATION: Home. TIME SPENT: Total amount of time spent coordinating this discharge: 32 minutes. DIET: Heart healthy and diabetic. ACTIVITY: As tolerated. POST-ACUTE CARE FOLLOWUP: With primary care provider in 3 days; with Cardiology , Dr. Gutierrez on May 01, 2019 at 10:00 a.m.; and with Dr. Bebeto Swain in 2 to 3 weeks. Job ID: [id number] MTDD
[2019-04-28] MEDS ORDERED: Lidocaine Patch Removal 1 EACH TOP SCH (05:00)
== END 2019-04-27 18:45 | disposition home or self-care (01) | DRG 292 ==
LOC: 2NO 22:37
PROVIDERS: ADMIT Family Medicine; ATTEND Family Medicine
DX: I11.0 Hypertensive heart disease with heart failure (principal); E87.1 Hypo-osmolality and hyponatremia; I25.10 Atherosclerotic heart disease of native coronary artery without angina pectoris; I50.33 Acute on chronic diastolic (congestive) heart failure; Z95.1 Presence of aortocoronary bypass graft; Z95.0 Presence of cardiac pacemaker; E11.9 Type 2 diabetes mellitus without complications; I35.0 Nonrheumatic aortic (valve) stenosis; Z79.82 Long term (current) use of aspirin; Z87.891 Personal history of nicotine dependence; I48.0 Paroxysmal atrial fibrillation; I27.20 Pulmonary hypertension, unspecified
CPT/HCPCS: 36415; 36416; 80048; 80053; 83880; 84484; 85025; 93798; 94010; 94640; J1650; J1940; J7620

== ENCOUNTER 2021-05-11 12:47 | Outpatient (CLI) | payer MEDICARE, OTHER | END 2021-05-11 12:48 | disposition home or self-care (01) | LOC: BICCT 12:47 | PROVIDERS: ATTEND Thoracic Surgery (Cardiothoracic Vascular Surgery) | DX: I65.29 Occlusion and stenosis of unspecified carotid artery (principal); I70.8 Atherosclerosis of other arteries | CPT/HCPCS: 70498; 82565 ==

== ENCOUNTER 2021-05-17 09:30 | Inpatient (IN) | payer MEDICARE, OTHER ==
[2021-05-18] MEDS ORDERED: Phenylephrine 10 MG/ML VIAL ONE (07:18)
[2021-05-18] MEDS ORDERED: Fentanyl 250 MCG/5 ML VIAL ONE (10:41)
[2021-05-18] MEDS ORDERED: Bupivacaine PF 0.5% 30 ML VIAL ONE (10:45)
[2021-05-18] MEDS ORDERED: Protamine Sulfate 50 MG/5 ML VIAL ONE (10:45)
[2021-05-18] MEDS ORDERED: Dexamethasone 4 mg/ml Vial ONE (10:45)
[2021-05-18] MEDS ORDERED: EPINEPHrine 1 MG/ML AMP ONE (10:45)
[2021-05-18] MEDS ORDERED: Heparin 5,000 UNITS/ML VIAL ONE (10:45)
[2021-05-18] MEDS ORDERED: Lidocaine 2% PF 5 ML VIAL ONE (11:06)
[2021-05-18] MEDS ORDERED: ceFAZolin Sodium (SDC) 2 GM/100 ML BAG ONE (11:52)
[2021-05-18] MEDS ORDERED: Ondansetron PF 4 MG/2 ML Vial ONE (12:00)
[2021-05-18] MEDS ORDERED: Dexamethasone 20 MG/5 ML VIAL ONE (12:00)
[2021-05-18] MEDS ORDERED: Glycopyrrolate 0.2 MG/ML 5 ML SYRINGE ONE (12:00)
[2021-05-18] MEDS ORDERED: Rocuronium Bromide 10 MG/ML (10ML VIAL) ONE (12:00)
[2021-05-18] MEDS ORDERED: PROPOFOL 200 MG/20 ML VIAL ONE (12:00)
[2021-05-18] MEDS ORDERED: Lidocaine 1% PF 5 ML VIAL ONE (12:00)
[2021-05-18] MEDS ORDERED: hydrALAZINE 20 MG/ML VIAL SLOW IVP PRN (13:28)
[2021-05-18] MEDS ORDERED: Phenylephrine 40 MG in Sodium Chloride 0.9% 250 ML 250 ML IVPB PRN (13:28)
[2021-05-18] MEDS ORDERED: Fentanyl 100 MCG/2 ML VIAL SLOW IVP PRN (13:28)
[2021-05-18] MEDS ORDERED: Ondansetron PF 4 MG/2 ML Vial IVP PRN (13:28)
[2021-05-18] MEDS ORDERED: traMADol HCl 50 MG TAB PO PRN (13:28)
[2021-05-18] MEDS ORDERED: Acetaminophen 325 MG TAB PO PRN (13:28)
[2021-05-18] MEDS ORDERED: Insulin Regular 300 UNITS/3 ML VIAL SC PRN (13:28)
[2021-05-18 17:00] VITALS: BMI 26.6
[2021-05-18] MEDS: Sodium Chloride 0.9% 1,000 ML IV SCH (17:13)
[2021-05-18] MEDS ORDERED: metFORMIN 500 MG TAB PO SCH (18:00)
[2021-05-18] MEDS ORDERED: glyBURIDE 5 MG TAB PO SCH (18:00)
[2021-05-18] MEDS: CEFAZOLIN 2 GM in Sodium Chloride 0.9% 100 ML IVPB SCH (20:28)
[2021-05-18] MEDS: Carvedilol 25 MG TAB PO SCH (20:28)
[2021-05-18] MEDS ORDERED: Atorvastatin Calcium 40 MG TAB PO SCH (21:00)
[2021-05-18] MEDS ORDERED: clonazePAM 0.5 MG TAB PO SCH (22:00)
[2021-05-19] MEDS: Sodium Chloride 0.9% 1,000 ML IV SCH ×2 (00:30→08:21)
[2021-05-19] MEDS: Mometasone 100 MCG/Formoterol 5 MCG 120 PUFF INHALER INH SCH ×2 (01:07→08:10)
[2021-05-19 03:35] VITALS: TEMP 97.8
[2021-05-19] MEDS: CEFAZOLIN 2 GM in Sodium Chloride 0.9% 100 ML IVPB SCH (04:01)
[2021-05-19] MEDS ORDERED: Levothyroxine Sodium 50 MCG TAB PO SCH (06:00)
[2021-05-19] MEDS ORDERED: metFORMIN 500 MG TAB PO SCH (07:30)
[2021-05-19] MEDS ORDERED: glyBURIDE 5 MG TAB PO SCH (07:30)
[2021-05-19] MEDS: Carvedilol 25 MG TAB PO SCH (08:18)
[2021-05-19] MEDS ORDERED: Clopidogrel Bisulfate 75 MG TAB PO SCH (09:00)
[2021-05-19] MEDS ORDERED: Furosemide 40 MG TAB PO SCH (16:30)
[2021-05-19] MEDS ORDERED: Potassium Chloride 10 MEQ TAB PO SCH (21:00)
[2021-05-25] MEDS ORDERED: DULAGLUTIDE SC SCH (09:00)
[2021-05-25] MEDS ORDERED: [UNRECOGNIZED DRUG - OTHER] SC SCH (09:00)
== END 2021-05-19 10:04 | disposition home or self-care (01) | DRG 36 ==
LOC: T4-A 05-18 10:03 → IMCU/EMU 05-18 17:04
PROVIDERS: ADMIT Thoracic Surgery (Cardiothoracic Vascular Surgery); ATTEND Thoracic Surgery (Cardiothoracic Vascular Surgery)
PROC: 037H3DZ Dilation of Right Common Carotid Artery with Intraluminal Device, Percutaneous Approach (ICD-10-PCS; principal; 2021-05-18)
DX: I65.21 Occlusion and stenosis of right carotid artery (principal); Z20.822 Contact with and (suspected) exposure to COVID-19; I10 Essential (primary) hypertension; I25.10 Atherosclerotic heart disease of native coronary artery without angina pectoris; I48.91 Unspecified atrial fibrillation; E10.9 Type 1 diabetes mellitus without complications; E03.9 Hypothyroidism, unspecified; E78.5 Hyperlipidemia, unspecified; Z98.42 Cataract extraction status, left eye; Z98.41 Cataract extraction status, right eye; Z95.1 Presence of aortocoronary bypass graft; Z95.0 Presence of cardiac pacemaker; Z87.891 Personal history of nicotine dependence; Z79.890 Hormone replacement therapy; Z79.84 Long term (current) use of oral hypoglycemic drugs; Z79.899 Other long term (current) drug therapy
CPT/HCPCS: 36416; 76000; 80048; 85027; 93005; 93010; 94640; C1725; C1876; C1884; J0171; J0690; J1100; J1642; J1644; J1815; J2001; J2370; J2405; J2704; J2720; J3010; J3490; J7050; J7620; S0020; U0003; U0005

== ENCOUNTER 2021-05-17 10:23 | Outpatient (CLI) | payer MEDICARE, OTHER ==
[2021-05-17 11:42] LABS: Hemoglobin 11.5 g/dL (13.5-17.5); Mean Corpuscular HGB CONC 31.1 g/dL (32.0-36.0); Mean Corpuscular Hemoglobin 30.6 pg (27.0-33.0); Mean Corpuscular Volume 98.4 fl (81.2-95.1); Mean Platelet Volume 9.3 fl (7.4-10.4); Platelet Count 177 10x3/uL (150-450); RBC Distribution Width 13.2 % (11.5-14.5); Red Blood Cell (RBC) Count 3.76 10x6/uL (4.32-5.72)
[2021-05-17 12:05] LABS: Anion Gap 15 mmol/L (10-20); BUN (Urea Nitrogen) 31 mg/dL (8.4-25.7); Calc. Creatinine Clearance 0 mL/min (70-130); Calcium 9.1 mg/dL (7.8-10.44); Carbon Dioxide 28 mmol/L (23-31); Chloride 101 mmol/L (98-107); Glucose 170 mg/dL (83-110); Potassium 4.4 mmol/L (3.5-5.1); Sodium 140 mmol/L (136-145)
[2021-05-17 17:56] LABS: SARS-CoV-2 PCR by NAA Not Detected (NotDetected)
== END 2021-05-17 10:24 | disposition home or self-care (01) ==
LOC: LABBT 10:23
PROVIDERS: ATTEND Thoracic Surgery (Cardiothoracic Vascular Surgery)
DX: Z01.818 Encounter for other preprocedural examination (principal); I65.21 Occlusion and stenosis of right carotid artery; Z20.822 Contact with and (suspected) exposure to COVID-19
CPT/HCPCS: 80048; 85027; 93005; U0003; U0005; 93010